=== PATIENT | female | born 1945 | race Caucasian/White ===

== ENCOUNTER 2017-07-08 07:54 | Outpatient (CLI) | payer MEDICARE ==
--- NOTE | 2017-07-08 09:45 | ULT ---
ULTRASOUND OF ABDOMEN: Date: 07/08/17 HISTORY: Epigastric pain. COMPARISON: None. FINDINGS: Visualized portion of the pancreas unremarkable. Aorta is unremarkable. Hepatic echotexture is normal. Main portal vein is patent. Liver measures 13.0 cm in length. Common bile duct measures just under 6.0 mm. Right kidney measures 8.6 x 5.1 x 3.9 cm with an inferior pole 1.5 cm cyst. Left kidney measures 8.4 x 4.5 x 4.2 cm. Spleen mildly enlarged measuring 12.1 cm. IMPRESSION: 1. Mild splenomegaly. 2. Right inferior renal simple cyst. 3. No findings to explain patient's pain. 4. Renal size lower limits of normal bilaterally. POS: C
== END 2017-07-08 07:55 | disposition home or self-care (01) ==
LOC: ULT 07:54
PROVIDERS: ATTEND Family Medicine
DX: R10.13 Epigastric pain (principal); R19.7 Diarrhea, unspecified; R63.4 Abnormal weight loss; Z90.49 Acquired absence of other specified parts of digestive tract
CPT/HCPCS: 76700

== ENCOUNTER 2018-05-21 12:58 | Outpatient (CLI) | payer MEDICARE ==
--- NOTE | 2018-05-21 14:33 | BD ---
DEXA SCAN: Date: 05-21-18 Provided Clinical History: Post-menopausal screening. FINDINGS: Exam: DEXA Bone Density Lumbar Spine: BMD (g/cm2) L1 .869 T-Score: -1.1 L2 .921 T-Score: -1.0 L3 .976 T-Score: -1.0 L4 .110 T-Score: .4 L1-L4 .973 T-Score: -.7 Femoral Neck: .5861 T-Score: 2.4 Total Femur: .8821 T-Score: .5 [id number]: Major osteoarthritic fracture 21%. Hip fracture 4.9% Impression: Calculated bone mineral density of the left femoral neck meets the criteria for osteopenia and places the patient at increased risk for fracture. POS: SYDNEY
== END 2018-05-21 12:59 | disposition home or self-care (01) ==
LOC: BICMAMMO 12:58
PROVIDERS: ATTEND Family Medicine
DX: Z12.31 Encounter for screening mammogram for malignant neoplasm of breast (principal); N95.9 Unspecified menopausal and perimenopausal disorder; M85.852 Other specified disorders of bone density and structure, left thigh
CPT/HCPCS: 77063; 77067; 77080

== ENCOUNTER 2018-12-31 12:42 | Outpatient (CLI) | payer MEDICARE ==
--- NOTE | 2018-12-31 13:14 | RAD ---
CERVICAL SPINE THREE VIEWS: HISTORY: Cervical radiculopathy. Right arm pain and numbness. COMPARISON: None. FINDINGS: Predental space is normal. No prevertebral soft tissue swelling. In the neutral position, 1.5 mm of anterolisthesis of C3 upon C4. Upon extension, less than 1 mm of anterolisthesis. Upon flexion, 2.3 mm of anterolisthesis. Uncomplicated cervical fusion from C4 through C7. No perihardware lucency. Bone plug material is no carlie at the C4-C5, C5-C6, and C6-C7 disc spaces. Limited evaluation of the cervical-thoracic junction. Overall, there is diffuse bone demineralizatio n. IMPRESSION: Uncomplicated cervical fusion, as above. Transcribed Date/Time: 12/31/2018 1:26 PM
== END 2018-12-31 12:43 | disposition home or self-care (01) ==
LOC: TBSIIMAG 12:42
PROVIDERS: ATTEND Neurological Surgery
DX: M54.12 Radiculopathy, cervical region (principal); Z98.1 Arthrodesis status
CPT/HCPCS: 72040

== ENCOUNTER 2019-06-25 11:37 | Outpatient (CLI) | payer MEDICARE ==
[2019-06-25 12:27] LABS: #Eosinphils 0.3 thou/uL (0.0-0.7); #Lymphocytes 2.1 thou/uL (1.20-3.40); #Monocytes 0.4 thou/uL (0.11-0.59); #Neutrophils 3.3 thou/uL (1.40-6.50); %Basophils 0.7 % (0.0-1.0); %Eosinophils 5.3 % (0.0-10.0); %Lymphocytes 33.8 % (21.0-51.0); %Monocytes 6.6 % (0.0-10.0); %Neutrophils 53.6 % (42.0-75.0); Hemoglobin 13.2 g/dL (12.0-16.0); Mean Corpuscular HGB CONC 34.2 g/dL (32.0-36.0); Mean Corpuscular Hemoglobin 32.1 pg (27.0-31.0); Mean Corpuscular Volume 93.8 fL (78.0-98.0); Platelet Count 236 thou/uL (130-400); RBC Distribution Width 11.3 % (11.5-14.5); Red Blood Cell (RBC) Count 4.12 mill/uL (4.20-5.40); White Blood Cell (WBC) Count 6.1 thou/uL (4.8-10.8)
[2019-06-25 12:46] LABS: Anion Gap 14 mmol/L (10-20); BUN (Urea Nitrogen) 14 mg/dL (9.8-20.1); Calc. Creatinine Clearance 0 mL/min (70-130); Calcium 9.1 mg/dL (7.8-10.44); Carbon Dioxide 24 mmol/L (23-31); Chloride 107 mmol/L (98-107); Estimated GFR-MDRD 50; Glucose 128 mg/dL (83-110); Potassium 4.2 mmol/L (3.5-5.1); Sodium 141 mmol/L (136-145)
--- NOTE | 2019-06-28 11:41 | EKG ---
Test Reason : Blood Pressure : / mmHG Vent. Rate : 063 BPM Atrial Rate : 063 BPM P-R Int : 178 ms QRS Dur : 082 ms QT Int : 406 ms P-R-T Axes : 039 033 -08 degrees QTc Int : 415 ms Normal sinus rhythm Abnormal ECG Confirmed by JOAQUÍN MATA ([id number]) on 06/28/2019 11:40:33 AM Referred By: VIANEY Confirmed By:JOAQUÍN MATA
== END 2019-06-25 11:38 | disposition home or self-care (01) ==
LOC: LABBT 11:37
PROVIDERS: ATTEND Orthopaedic Surgery
DX: Z01.818 Encounter for other preprocedural examination (principal); S46.211A Strain of muscle, fascia and tendon of other parts of biceps, right arm, initial encounter; M75.101 Unspecified rotator cuff tear or rupture of right shoulder, not specified as traumatic
CPT/HCPCS: 80048; 85025; 93005; 93010

== ENCOUNTER 2019-06-29 07:56 | Day surgery (SDC) | payer MEDICARE ==
[2019-06-25 12:06] VITALS: BMI 28.7
[2019-06-29] MEDS ORDERED: Fentanyl 100 MCG/2 ML VIAL ONE ×2 (08:54→13:59)
[2019-06-29] MEDS ORDERED: Midazolam HCl 2 mg/2 ml Vial ONE (08:54)
[2019-06-29] MEDS ORDERED: HYDROcodone/Acetaminophen 10/325 mg Tablet PO PRN ×2 (09:26)
[2019-06-29] MEDS ORDERED: traMADol HCl 50 MG TAB PO PRN ×2 (09:26)
[2019-06-29] MEDS ORDERED: Promethazine HCl 25 MG/ML VIAL IM PRN (09:26)
[2019-06-29] MEDS ORDERED: Zolpidem Tartrate 5 MG TAB PO PRN (09:26)
[2019-06-29] MEDS ORDERED: Ropivacaine 0.2% 550 ML 550 ML NERVE BLCK SCH (09:26)
[2019-06-29] MEDS ORDERED: Ondansetron PF 4 MG/2 ML Vial IVP PRN (09:26)
[2019-06-29] MEDS ORDERED: Ketorolac Tromethamine 30 MG/ML VIAL IVP SCH (12:00)
[2019-06-29] MEDS ORDERED: Ondansetron PF 4 MG/2 ML Vial ONE (13:03)
[2019-06-29] MEDS ORDERED: PROPOFOL 200 MG/20 ML VIAL ONE (13:03)
[2019-06-29] MEDS ORDERED: Lidocaine 1% PF 5 ML VIAL ONE (13:03)
[2019-06-29] MEDS ORDERED: Rocuronium Bromide 10 MG/ML (10ML VIAL) ONE (13:03)
[2019-06-29] MEDS ORDERED: ePHEDrine/0.9% NaCl/PF SYRINGE 50 mg/10 ml ONE (13:03)
[2019-06-29] MEDS ORDERED: PHENYLEPHRINE-NS 100 MCG/ML 10 ML SYRINGE ONE (13:03)
[2019-06-29] MEDS ORDERED: Ropivacaine 0.5% HCl/PF (150 MG/30 ML VIAL) ONE (13:03)
[2019-06-29] MEDS ORDERED: Ketorolac Tromethamine 30 MG/ML VIAL ONE (13:21)
--- NOTE | 2019-06-29 14:00 | OP ---
DATE OF PROCEDURE: 06/29/2019 PREOPERATIVE DIAGNOSIS: Right shoulder rotator cuff tear with biceps tendinosis. POSTOPERATIVE DIAGNOSIS: Right shoulder rotator cuff tear with biceps tendinosis. PROCEDURE PERFORMED: Mini open right shoulder rotator cuff with open biceps tenodesis. HOME HEALTH CLINICAL LIAISON: Alex Chan PA-C ANESTHESIA: General via endotracheal tube augmented with an indwelling interscalene block. COMPONENTS USED: Two Arthrex 4.5 metallic double-armed suture anchors and one Arthrex biceps tenodesis screw. ESTIMATED BLOOD LOSS: Less than 30 mL. INPUT: 1 L of normal saline. FINDINGS: Supraspinatus insertional tendon tear through and through with significant biceps tendinosis and subluxation. DRAINS: None. SPECIMENS: None. COMPLICATIONS: None. COUNTS: Correct. INDICATION FOR SURGERY: Alexandra is a 74-year-old white female, who has had progressive right shoulder pain, amplified with abduction, lifting of the arm and forward flexion. MRI demonstrated a focal retracted right rotator cuff tear with biceps tendinosis and subluxation. Therefore, she has elected to proceed with mini open rotator cuff repair and tenodesis as definitive treatment. DESCRIPTION OF PROCEDURE: After informed consent was obtained in the preoperative holding area, the patient was taken to the operative suite, where she received preoperative antibiotics and general anesthesia was induced. Once adequate anesthesia was obtained, general endotracheal tube was placed and secured and she was positioned appropriately in the operating table in a semi-recumbent beach chair position. The right upper extremity was then prepped and draped in usual sterile fashion. Prior to incision, time-out was called, and all members of surgical team agreed upon site, surgeon, and patient. Once this was completed, incision was made directly over the acromion extending down toward the mid aspect of the middle and anterior deltoids. This raphe was then chosen and used for a deltoid split. The Bovie electrocautery was used to maintain hemostasis and also to set divide the deltoid raphe. This was then reflected off the acromion exposing the large spur, which was then identified and a straight osteotome was then used to mallet off the acromial spur allowing further visualization and access. The subacromial bursa was then identified and removed, and the rotator cuff tear was identified, freshened up and curettage was used to remove excess bone at the footprint. The tear measured approximately 1.5 cm x 1.5 cm. We chose 2 double-arm metallic suture anchors. We also elected to proceed with a double row footprint. Therefore, after placing the metallic implants, Delgado-Vipin stitches were placed x4. Tissue bridges were then tied over the top, and we used the self punching suture anchor x2 for double row effect in a crossing pattern. Once all stitches were placed, the attention was then turned for a simple biceps tenodesis using a tenodesis screw Bio[employer]posite 7 x 23 mm. Biceps was then secured in place using an interference technique. Entire wound was copiously irrigated with normal saline. Primary closure was accomplished with reattachment of the deltoid using #1 Ethibond stitches x4 using transosseous anchoring in a simple technique. Then, primary closure was accomplished with a running #1. Subcutaneous layer was closed with 2-0 interrupted stitches and stainless steel gillian were used to reapproximate the skin. A sterile dressing was applied. The procedure was terminated without any complication. The patient was awakened in the operative suite, extubated, and taken to recovery room in stable condition. Job ID: [id number]
== END 2019-06-29 17:03 | disposition home or self-care (01) ==
LOC: SDC 07:56
PROVIDERS: ATTEND Orthopaedic Surgery
PROC: 0LQ10ZZ Repair Right Shoulder Tendon, Open Approach (ICD-10-PCS; principal; 2019-06-29)
PROC: 0LS10ZZ Reposition Right Shoulder Tendon, Open Approach (ICD-10-PCS; 2019-06-29)
PROC: 0RHJ04Z Insertion of Internal Fixation Device into Right Shoulder Joint, Open Approach (ICD-10-PCS; 2019-06-29)
PROC: 3E0T3BZ Introduction of Anesthetic Agent into Peripheral Nerves and Plexi, Percutaneous Approach (ICD-10-PCS; 2019-06-29)
DX: S46.211A Strain of muscle, fascia and tendon of other parts of biceps, right arm, initial encounter (principal); S46.011A Strain of muscle(s) and tendon(s) of the rotator cuff of right shoulder, initial encounter; M75.21 Bicipital tendinitis, right shoulder; G89.18 Other acute postprocedural pain; K21.9 Gastro-esophageal reflux disease without esophagitis; E78.00 Pure hypercholesterolemia, unspecified; F32.9 Major depressive disorder, single episode, unspecified; Z79.899 Other long term (current) drug therapy; Z88.1 Allergy status to other antibiotic agents; Z88.2 Allergy status to sulfonamides; Z91.040 Latex allergy status; Z98.1 Arthrodesis status; W06.XXXA Fall from bed, initial encounter
CPT/HCPCS: 23410; 23430; 64416; 97139; A4306; C1713; J0690; J1885; J2001; J2250; J2405; J2704; J2795; J3010

== ENCOUNTER 2020-05-30 09:52 | Outpatient (CLI) | payer MEDICARE ==
--- NOTE | 2020-05-30 10:32 | BD ---
EXAM: Bone densitometry using DEXA HISTORY: 75 yo female. Screening for postmenopausal osteoporosis FINDINGS: L1--bone mineral density 0.875 g/sq cm; T score -1.0 ; Z score 1.0 L2--bone mineral density 0.916 g/sq cm; T score -1.0 ; Z score 1.2 L3--bone mineral density 1.002 g/sq cm; T score -0.7 ; Z score 1.6 L4--bone mineral density 1.085 g/sq cm; T score 0.2 ; Z score 2.7 Total L1-L4--bone mineral density 0.973 g/sq cm; T score -0.7 ; Z score 1.6 Left femoral neck--bone mineral density0.589; T score -2.3 ; Z score -0.4 Total proximal left femur--bone mineral density 0.742; T score -1.6 ; Z score 0.0 The 10 year fracture risk for a major osteoporotic fracture is 21% and for a hip fracture is 5.1%. IMPRESSION: Osteopenia
--- NOTE | 2020-05-30 11:45 | MMO ---
Bilateral MAMMO Bilat Screen [facility]DI+SADE. CLINICAL HISTORY: Patient is 75 years old and is seen for screening. VIEWS: The views performed were: . FILMS COMPARED: The present examination has been compared to a prior imaging study performed at [facility] on 05/21/2018. This study has been interpreted with the assistance of computer-aided detection. MAMMOGRAM FINDINGS: There are scattered fibroglandular densities. Benign calcifications are noted bilaterally. There are no suspicious masses, suspicious calcifications, or new areas of architectural distortion. IMPRESSION: THERE IS NO MAMMOGRAPHIC EVIDENCE OF MALIGNANCY. A ROUTINE FOLLOW-UP MAMMOGRAM IN 1 YEAR IS RECOMMENDED. THE RESULTS OF THIS EXAM WERE SENT TO THE PATIENT. ACR BI-RADS Category 2 - Benign finding MAMMOGRAPHY NOTE: 1. A negative mammogram report should not delay a biopsy if a dominant of clinically suspicious mass is present. 2. Approximately 10% to 15% of breast cancers are not detected by mammography. 3. Adenosis and dense breasts may obscure an underlying neoplasm. Reported by: PEDRO MCDUFFIE MD Electonically Signed: [id number]
== END 2020-05-30 09:53 | disposition home or self-care (01) ==
LOC: BICMAMMO 09:52
PROVIDERS: ATTEND Student in an Organized Health Care Education/Training Program
DX: Z12.31 Encounter for screening mammogram for malignant neoplasm of breast (principal); M85.89 Other specified disorders of bone density and structure, multiple sites
CPT/HCPCS: 77063; 77067; 77080

== ENCOUNTER 2020-06-22 13:20 | Outpatient (CLI) | payer MEDICARE ==
--- NOTE | 2020-06-22 17:09 | MRI ---
Exam: Cervical spine MRI with and without contrast HISTORY: Cervical fusion. Cervical radiculopathy. FINDINGS: Anterior fusion plate with transvertebral body screw from C4 through C7. There is associated metallic susceptibly artifact, limiting evaluation. There is a disc prosthesis at C4-C5, C5-C6 and C6-C7. There is no significant STIR hyperintensity to suggest vertebral body edema or ligamentous injury. S traightening of cervical lordosis is presumed to be due to fusion. Visualized brain parenchyma, cervicomedullary junction, cervical cord and the upper thoracic cord hav e a normal size and signal intensity. Postcontrast images do not demonstrate abnormal enhancement with regards to the vertebral bodies. The re is no abnormal enhancement with regards the visualized brain parenchyma, cervicomedullary junction, cervical cord and the upper thoracic cord. C2-C3: 2.2 mm of anterolisthesis of C3 upon C4. Broad-based disc bulge without significant central ca nal stenosis. Mild right foraminal narrowing due to uncovertebral and facet hypertrophy. Patent left neural foramen C3-C4: Disc desiccation with a central/left paracentral disc herniation. Mild central canal stenosis. Patent bilateral neural foramina C4-C5: Disc prosthesis. Broad-based osteophyte ridge with a central protruding osteophyte. Minimal co ntact upon the left hemicord. No cord signal abnormality. Mild central canal stenosis. Patent bilateral neural foramina C5-C6: Disc prosthesis. Broad-based osteophyte ridge. No significant central canal stenosis. Patent b ilateral neural foramina C6-C7: Disc prosthesis. Broad-based osteophyte ridge. No significant central canal stenosis. Patent b ilateral neural foramina C7-T1: No significant central canal stenosis. Patent bilateral neural foramina IMPRESSION: Cervical fusion from C3-4 through C7 as described above. Varying degrees of central canal stenosis and foraminal narrowing as detailed above. Transcribed Date/Time: 06/22/2020 8:14 PM
== END 2020-06-22 13:21 | disposition home or self-care (01) ==
LOC: SCSMRI 13:20
PROVIDERS: ATTEND Neurological Surgery
DX: M54.12 Radiculopathy, cervical region (principal); M48.02 Spinal stenosis, cervical region; Z98.1 Arthrodesis status
CPT/HCPCS: 72156

== ENCOUNTER 2022-06-17 10:35 | Outpatient (CLI) | payer MEDICARE | END 2022-06-17 10:36 | disposition home or self-care (01) | LOC: MRI 10:35 | PROVIDERS: ATTEND Psychiatry & Neurology Neurology | DX: M47.22 Other spondylosis with radiculopathy, cervical region (principal); Z98.1 Arthrodesis status | CPT/HCPCS: 72141 ==

== ENCOUNTER 2022-07-15 16:45 | Outpatient (CLI) | payer MEDICARE | END 2022-07-15 16:46 | disposition home or self-care (01) | LOC: RAD 16:45 | PROVIDERS: ATTEND Neurological Surgery | DX: S32.009A Unspecified fracture of unspecified lumbar vertebra, initial encounter for closed fracture (principal); S22.089A Unspecified fracture of T11-T12 vertebra, initial encounter for closed fracture; M47.816 Spondylosis without myelopathy or radiculopathy, lumbar region | CPT/HCPCS: 72100 ==

== ENCOUNTER 2023-04-09 15:07 | Outpatient (CLI) | payer MEDICARE | END 2023-04-09 15:08 | disposition home or self-care (01) | LOC: BICMAMMO 15:07 | PROVIDERS: ATTEND Student in an Organized Health Care Education/Training Program | DX: Z12.31 Encounter for screening mammogram for malignant neoplasm of breast (principal); Z91.89 Other specified personal risk factors, not elsewhere classified | CPT/HCPCS: 77063; 77067 ==

== ENCOUNTER 2023-11-13 13:03 | Outpatient (CLI) | payer MEDICARE | END 2023-11-13 13:04 | disposition home or self-care (01) | LOC: BICMAMMO 13:03 | PROVIDERS: ATTEND Physician Assistant | DX: Z13.820 Encounter for screening for osteoporosis (principal); M85.851 Other specified disorders of bone density and structure, right thigh; M85.852 Other specified disorders of bone density and structure, left thigh; Z78.0 Asymptomatic menopausal state | CPT/HCPCS: 77080 ==

== ENCOUNTER 2024-07-20 09:34 | Outpatient (CLI) | payer MEDICARE | END 2024-07-20 09:35 | disposition home or self-care (01) | LOC: BICRAD 09:34 | PROVIDERS: ATTEND Family Medicine | DX: R05.3 Chronic cough (principal) | CPT/HCPCS: 71046 ==

== ENCOUNTER 2025-05-05 11:56 | Outpatient (CLI) | payer MEDICARE | END 2025-05-05 11:57 | disposition home or self-care (01) | LOC: BICMAMMO 11:56 | PROVIDERS: ATTEND Family Medicine | DX: Z12.31 Encounter for screening mammogram for malignant neoplasm of breast (principal); Z80.3 Family history of malignant neoplasm of breast; Z91.89 Other specified personal risk factors, not elsewhere classified | CPT/HCPCS: 77063; 77067 ==